=== PATIENT | female | born 2000 | race Caucasian/White ===

== ENCOUNTER 2018-08-16 11:52 | Emergency (ER) | payer OTHER ==
[~2018-08-16] VITALS: Ht 182.9 cm; Wt 107.5 kg
[2018-08-16 12:15] VITALS: BP 151/73; Ht 182.9 cm; Wt 107.5 kg
== END 2018-08-16 15:22 | disposition home or self-care (01) ==
LOC: ED 11:52
DX: L03.032 Cellulitis of left toe (principal)
CPT/HCPCS: J2001